=== PATIENT | female | born 1960 | race Caucasian/White ===

== ENCOUNTER 2016-09-05 07:01 | Day surgery (SDC) | payer BC, MEDICARE ==
--- NOTE | ~2016-09-05 | EGD ---
EGD REPORT [facility] [address] [id number] NAME: JUDIT MARROQUIN : 62 STATUS : REG [facility]#: [id number] AGE: 56 ADM/REG DATE : 09/05/16 MR#: [id number] REPORT SERV DATE: 09/05/16 DICTATED BY: CHA CRAMER DATE: 09/05/16 REPORT STATUS : Draft TRANSCRIBED BY: [facility] DATE: 09/05/16 [facility] Center Patient Name: Judit Marroquin Date of : 1960 Attending MD: CHA CRAMER MD Procedure Date No Time: 09/05/2016 Procedure: Upper GI endoscopy Indications: Cirrhosis with suspected esophageal varices; PBC; nadolol/protonix. Patient Profile: Informed consent was obtained from the patient by me prior to the procedure. Risks, benefits, and alternatives were discussed including the risk of bleeding, perforation, infection, reaction to medicine, missed lesion, and cardiopulmonary complications. Medicines: Monitored Anesthesia Care Complications: No immediate complications. Procedure: Pre-Anesthesia Assessment: - ASA Grade Assessment: III - A patient with severe systemic disease. After obtaining informed consent, the endoscope was passed under direct vision. Throughout the procedure, the patient's blood pressure, pulse, and oxygen saturations were monitored continuously. The GIF [id number] was introduced through the mouth, and advanced to the second part of duodenum. The endoscope was withdrawn with careful examination all mucosal surfaces including retroflexion stomach. The upper GI endoscopy was accomplished without difficulty. The patient tolerated the procedure well. Findings: The examined duodenum was normal. A few benign-appearing localized small erosions were found in the gastric antrum. Moderate portal hypertensive gastropathy was found in the cardia, in the gastric fundus and in the gastric body. A few small angioectasias with no bleeding were found in the cardia and in the gastric body; no anemia; no intervention. Grade I varices were found in the lower third of the esophagus, no stigmata; minimal. The esophagus and gastroesophageal junction were examined with white light. There was no visual evidence of Chu's esophagus. Impression: - Normal examined duodenum. - Erosive gastropathy. EGD REPORT [address] [address] NAME: JUDIT MARROQUIN : 62 STATUS : [place] [facility] [place] [id number] AGE: 56 ADM/REG DATE : 09/05/16 MR#: [id number] REPORT SERV DATE: 09/05/16 DICTATED BY: CHA CRAMER DATE: 09/05/16 REPORT STATUS : Draft TRANSCRIBED BY: [facility] DATE: 09/05/16 - Portal hypertensive gastropathy. - A few non-bleeding angioectasias in the stomach. - Grade I esophageal varices. - There is no endoscopic evidence of Chu's esophagus. Recommendation: - Patient has a contact number available for emergencies. The signs and symptoms of potential delayed complications were discussed with the patient. Return to normal activities tomorrow. Written discharge instructions were provided to the patient. - Regular diet. - Continue present medications. - Repeat the upper endoscopy in 1 year for surveillance Mem AA. - Increase Protonix to bid. Procedure Code(s): --- Professional --- 39642, Esophagogastroduodenoscopy, flexible, transoral; diagnostic, including collection of specimen(s) by brushing or washing, when performed (separate procedure) Diagnosis Code(s): --- Professional --- K31.9, Disease of stomach and duodenum, unspecified K76.6, Portal hypertension K31.89, Other diseases of stomach and duodenum K31.819, Angiodysplasia of stomach and duodenum without bleeding I85.10, Secondary esophageal varices without bleeding K74.60, Unspecified cirrhosis of liver CPT copyright 2013 [employer]. All rights reserved. The codes documented in this report are preliminary and upon curtain stretcher review may be revised to meet current compliance requirements. CHA CRAMER MD 09/05/2016 8:27 AM This report has been signed electronically. Number of Addenda: 0 Note Initiated On: 09/05/2016 8:06 AM Scope Withdrawal Time 0 hours 0 minutes 0 seconds [address] [id number]
[~2016-09-05 07:01] MED LIST: ACT300 PO; COR20 PO; L20 PO; LACT30UDL PO; MULTIVITAMI1 PO; PROTONIX PO; PROVERA5 MG OR; SPIRO50 PO; VIT B; VITA10 PO; VITAMIN D31000 UNIT PO; WELCHOL 625 MG625 MG OR; WELCHOL625 MG OR; XIFAXAN PO
[2017-01-08] MEDS ORDERED: CONSTULOSE PO (13:33)
== END 2016-09-05 23:59 | disposition home or self-care (01) ==
LOC: DMU 07:01
PROVIDERS: Internal Medicine Gastroenterology
PROC: 0DJ08ZZ Inspection of Upper Intestinal Tract, Via Natural or Artificial Opening Endoscopic (ICD-10-PCS; principal; 2016-09-05 08:00)
DX: K31.9 Disease of stomach and duodenum, unspecified (principal); K76.6 Portal hypertension; K31.89 Other diseases of stomach and duodenum; K31.819 Angiodysplasia of stomach and duodenum without bleeding; I85.10 Secondary esophageal varices without bleeding; K74.60 Unspecified cirrhosis of liver; J32.9 Chronic sinusitis, unspecified; D69.6 Thrombocytopenia, unspecified; K74.3 Primary biliary cirrhosis; K64.9 Unspecified hemorrhoids; Z98.890 Other specified postprocedural states; Z98.891 History of uterine scar from previous surgery; Z98.51 Tubal ligation status; Z79.899 Other long term (current) drug therapy